=== PATIENT | male | born 1995 | race Caucasian/White ===

== ENCOUNTER 2017-06-25 21:15 | Emergency (ER) | payer MEDICAID ==
[~2017-06-25] VITALS: Ht 180.3 cm; Wt 77.0 kg
[2017-06-25] MEDS ORDERED: ONDANSETRON HCL 4MG/2ML VIAL IV STA (21:37)
[2017-06-25] MEDS ORDERED: SODIUM CHLORIDE 0.9% 1,000 ML IV ONE ×2 (21:37→23:00)
[2017-06-25 21:55] LABS: BASOPHILS % 0.3 % (0.0-2.0); EOSINOPHILS % 0.5 % (0.0-5.0); HEMATOCRIT. 40.3 % (42.0-52.0); HEMOGLOBIN. 13.5 g/dL (14.0-18.0); LYMPHOCYTES % 21.2 % (20.0-50.0); MEAN CORPUSCULAR HEMOGLOBIN 27.8 pg (28.0-32.0); MEAN CORPUSCULAR VOLUME 82.5 fL (80.0-94.0); MEAN PLATELET VOLUME 7.7 fl (7.4-10.4); PLATELET 227 x1000/uL (130-400); RED BLOOD CELL COUNT 4.88 mill/uL (4.7-6.1); RED CELL DISTRIBUTION WIDTH 13.7 % (11.6-14.6)
[2017-06-25 22:05] LABS: PROTHROMBIN TIME 10.9 sec (9.4-11.6)
[2017-06-25 22:07] LABS: CARBON DIOXIDE 32 mEq/L (21-32); CHLORIDE 105 mEq/L (98-107)
[2017-06-25] MEDS ORDERED: ONDANSETRON HCL 4MG/2ML VIAL IV ONE (23:00)
[2017-06-26 01:17] LABS: CLARITY URINE TURBID (CLEAR); COLOR URINE YELLOW (YELLOW); GLUCOSE URINE NEGATIVE (NEGATIVE); KETONES URINE NEGATIVE (NEGATIVE); LEUKOCYTE ESTERASE URINE NEGATIVE (NEGATIVE); NITRITE URINE NEGATIVE (NEGATIVE); OCCULT BLOOD URINE NEGATIVE (NEGATIVE); PROTEIN URINE NEGATIVE (NEGATIVE); SPECIFIC GRAVITY URINE 1.021 (1.005-1.030)
[2017-06-26 01:33] LABS: *AMPHETAMINES SCREEN URINE NEGATIVE (NEGATIVE); *BARBITURATES SCREEN URINE NEGATIVE (NEGATIVE); *BENZODIAZEPINES SCREEN URINE NEGATIVE (NEGATIVE); *COCAINE SCREEN URINE NEGATIVE (NEGATIVE); CANNABINOID URINE SCREEN NEGATIVE (NEGATIVE); METHADONE URINE SCREEN NEGATIVE (NEGATIVE); OPIATES URINE SCREEN NEGATIVE (NEGATIVE); PHENCYCLIDINE URINE SCREEN NEGATIVE (NEGATIVE)
[2017-06-26 02:00] VITALS: BP 101/51
== END 2017-06-26 02:20 | disposition home or self-care (01) ==
LOC: ER 21:36
DX: R11.0 Nausea (principal)
CPT/HCPCS: 36415; 80053; 80305; 81001; 83690; 85025; 85610; 96361; 96374; 96376; 99284; J2405; J7030; Z7610

== ENCOUNTER 2020-01-31 19:03 | Emergency (ER) | payer MEDICAID ==
[~2020-01-31] VITALS: Ht 180.3 cm; Wt 55.0 kg
[2020-01-31] MEDS ORDERED: ACETAMINOPHEN 500MG TABLET PO ONE (20:30)
[2020-01-31 22:32] VITALS: BP 128/78
== END 2020-01-31 22:34 | disposition home or self-care (01) ==
LOC: ER 19:03
DX: S83.203A Other tear of unspecified meniscus, current injury, right knee, initial encounter (principal); F20.9 Schizophrenia, unspecified; X50.1XXA Overexertion from prolonged static or awkward postures, initial encounter; Y93.89 Activity, other specified; Y92.018 Other place in single-family (private) house as the place of occurrence of the external cause
CPT/HCPCS: 73560; 99283; Z7610

== ENCOUNTER 2020-08-03 09:40 | Emergency (ER) | payer MEDICAID ==
[~2020-08-03] VITALS: Ht 180.3 cm; Wt 70.0 kg
[2020-08-03] MEDS ORDERED: IBUPROFEN 400MG TABLET PO ONE (10:00)
[2020-08-03 12:09] VITALS: BP 116/70
== END 2020-08-03 12:09 | disposition home or self-care (01) ==
LOC: ER 09:40
DX: S83.91XA Sprain of unspecified site of right knee, initial encounter (principal); Z00.01 Encounter for general adult medical examination with abnormal findings; Z98.890 Other specified postprocedural states; Z86.59 Personal history of other mental and behavioral disorders; X58.XXXA Exposure to other specified factors, initial encounter; Y93.89 Activity, other specified; Y92.89 Other specified places as the place of occurrence of the external cause; Y99.8 Other external cause status
CPT/HCPCS: 73560; 93971; 99284

== ENCOUNTER 2020-09-10 08:28 | Emergency (ER) | payer MEDICAID ==
[~2020-09-10] VITALS: Ht 180.3 cm; Wt 64.0 kg
[2020-09-10 09:02] VITALS: BP 110/70
== END 2020-09-10 09:03 | disposition home or self-care (01) ==
LOC: ER 08:28
DX: M25.561 Pain in right knee (principal); Z86.59 Personal history of other mental and behavioral disorders
CPT/HCPCS: 99282

== ENCOUNTER 2022-01-09 15:01 | Emergency (ER) | payer MEDICAID ==
[~2022-01-09] VITALS: Ht 182.9 cm; Wt 64.0 kg
[2022-01-09] MEDS ORDERED: KETOROLAC 15MG/ML VIAL IV ONE (15:30)
[2022-01-09] MEDS ORDERED: SODIUM CHLORIDE 0.9% 1,000 ML IV ONE (15:30)
[2022-01-09 16:00] LABS: BASOPHILS % 0.3 % (0.0-2.0); EOSINOPHILS % 0.2 % (0.0-5.0); HEMATOCRIT. 46.3 % (42.0-52.0); HEMOGLOBIN. 15.6 g/dL (14.0-18.0); LYMPHOCYTES % 9.4 % (20.0-50.0); MEAN CORPUSCULAR VOLUME 83.1 fL (80.0-94.0); MEAN PLATELET VOLUME 8.7 fl (7.4-10.4); MONOCYTES % 4.2 % (2.0-8.0); NEUTROPHILS % 85.9 % (40.0-76.0); PLATELET 256 x1000/uL (130-400); RED BLOOD CELL COUNT 5.57 mill/uL (4.7-6.1); RED CELL DISTRIBUTION WIDTH 12.2 % (11.6-14.6)
[2022-01-09 16:03] LABS: CHLORIDE 105 mEq/L (98-107)
[2022-01-09 16:11] LABS: ETHANOL BLOOD < 10 mg/dL
[2022-01-09] MEDS ORDERED: MAGNESIUM CITRATE 300ML SOLUTION PO ONE (17:00)
[2022-01-09] MEDS ORDERED: KETOROLAC 15MG/ML VIAL IV NR (20:00)
[2022-01-09 20:05] VITALS: BP 132/82
[2022-01-09] MEDS ORDERED: MAGN296S70 MT (20:10)
[2022-01-09] MEDS ORDERED: SENN-257 MT (20:10)
[2022-01-09] MEDS ORDERED: DOCU-138 MT (20:10)
== END 2022-01-09 20:24 | disposition home or self-care (01) ==
LOC: ER 15:01
DX: K59.00 Constipation, unspecified (principal); F20.9 Schizophrenia, unspecified; F31.9 Bipolar disorder, unspecified
CPT/HCPCS: 36415; 74176; 80053; 80320; 83690; 85025; 96374; 99284; J1885; J7030; G0480

== ENCOUNTER 2022-09-18 13:51 | Emergency (ER) | payer MEDICAID ==
[~2022-09-18] VITALS: Ht 182.9 cm; Wt 81.6 kg
[~2022-09-18 13:51] MED LIST: DOCU-138 MT; MAGN296S70 MT; SENN-257 MT
[2022-09-18] MEDS ORDERED: HYDROCODONE/ACETAMINOPHEN 5/325MG TABLET PO ONE (15:00)
[2022-09-18] MEDS ORDERED: IBUPROFEN 400MG TABLET PO ONE (15:00)
[2022-09-18 16:08] VITALS: BP 124/64
[2022-09-18] MEDS ORDERED: IBUP-2028 MT (17:44)
== END 2022-09-18 19:11 | disposition home or self-care (01) ==
LOC: ER 13:51
DX: M25.562 Pain in left knee (principal); F20.9 Schizophrenia, unspecified; W10.8XXA Fall (on) (from) other stairs and steps, initial encounter; Y93.89 Activity, other specified; Y92.018 Other place in single-family (private) house as the place of occurrence of the external cause
CPT/HCPCS: 72170; 72192; 73552; 73560; 73590; 99284; L1830; Z7610

== ENCOUNTER 2023-02-14 09:29 | Emergency (ER) | payer MEDICAID ==
[~2023-02-14] VITALS: Ht 180.3 cm; Wt 78.6 kg
[~2023-02-14 09:29] MED LIST changes: +IBUP-2028 MT
[2023-02-14 09:35] VITALS: O2SAT 100
[2023-02-14 10:12] LABS: CLARITY URINE CLEAR (CLEAR); COLOR URINE YELLOW (YELLOW); KETONES URINE NEGATIVE (NEGATIVE); LEUKOCYTE ESTERASE URINE NEGATIVE (NEGATIVE); NITRITE URINE NEGATIVE (NEGATIVE); OCCULT BLOOD URINE NEGATIVE (NEGATIVE); PH URINE 6.5 (4.5-8.0); PROTEIN URINE NEGATIVE (NEGATIVE); SPECIFIC GRAVITY URINE 1.019 (1.005-1.030); UROBILINOGEN URINE 0.2 E.U./dL (0.2-1.0)
[2023-02-14 10:31] VITALS: BP 132/94; PULSE 87; RESP 16; TEMP 97.9
[2023-02-16 08:08] LABS: NEISSERIA GONORRHOEAE NAA Negative (Negative)
== END 2023-02-14 10:32 | disposition home or self-care (01) ==
LOC: ER 09:42
DX: Z11.3 Encounter for screening for infections with a predominantly sexual mode of transmission (principal)
CPT/HCPCS: 81003; 86592; 87491; 87591; 99283

== ENCOUNTER 2023-02-25 20:19 | Emergency (ER) | payer MEDICAID ==
[~2023-02-25] VITALS: Ht 180.3 cm; Wt 75.9 kg
[2023-02-25 21:12] VITALS: O2SAT 97
[2023-02-25] MEDS ORDERED: IBUPROFEN 600MG TABLET PO ONE (23:15)
[2023-02-25 23:51] VITALS: BP 109/67
[2023-02-26 01:03] VITALS: PULSE 96; TEMP 97.9
== END 2023-02-26 01:03 | disposition home or self-care (01) ==
LOC: ER 20:19
DX: S20.211A Contusion of right front wall of thorax, initial encounter (principal); S49.91XA Unspecified injury of right shoulder and upper arm, initial encounter; G89.11 Acute pain due to trauma; W14.XXXA Fall from tree, initial encounter; Y93.89 Activity, other specified; Y92.89 Other specified places as the place of occurrence of the external cause; Y99.8 Other external cause status
CPT/HCPCS: 71045; 73080; 73090; 99284

== ENCOUNTER 2023-05-05 13:36 | Emergency (ER) | payer MEDICAID ==
[~2023-05-05] VITALS: Ht 182.9 cm; Wt 72.0 kg
[~2023-05-05 13:36] MED LIST changes: +CEPH500T MT; +NAPR-681 PO; +SULF1TAB48 MT
[2023-05-05 13:43] VITALS: BP 112/69; PULSE 73; RESP 20; TEMP 98.6; O2SAT 99
[2023-05-05] MEDS ORDERED: CEFTRIAXONE SODIUM 500 MG/VIAL IM ONE (14:30)
[2023-05-05] MEDS ORDERED: DOXYCYCLINE HYCLATE 100MG CAPSULE PO ONE (14:30)
[2023-05-06] MEDS ORDERED: CEPH500C2 MT (16:15)
[2023-05-06] MEDS ORDERED: IBUP-2029 MT (16:15)
== END 2023-05-05 19:50 | disposition left against medical advice (07) ==
LOC: ER 13:40
DX: A64 Unspecified sexually transmitted disease (principal); Z53.21 Procedure and treatment not carried out due to patient leaving prior to being seen by health care provider
CPT/HCPCS: 99281

== ENCOUNTER 2023-05-06 13:41 | Emergency (ER) | payer MEDICAID ==
[~2023-05-06] VITALS: Ht 180.3 cm; Wt 78.0 kg
[2023-05-06 13:45] VITALS: BP 104/45; PULSE 83; RESP 16; TEMP 98.7; O2SAT 98
[2023-05-06] MEDS ORDERED: IBUP-2029 MT (16:15)
[2023-05-06] MEDS ORDERED: CEPH500C2 MT (16:15)
== END 2023-05-06 16:40 | disposition home or self-care (01) ==
LOC: ER 13:41
DX: L03.311 Cellulitis of abdominal wall (principal); F20.9 Schizophrenia, unspecified; Z98.890 Other specified postprocedural states
CPT/HCPCS: 99283

== ENCOUNTER 2024-10-18 09:27 | Emergency (ER) | payer MEDICAID ==
[~2024-10-18] VITALS: Ht 180.3 cm; Wt 86.1 kg
[~2024-10-18 09:27] MED LIST changes: +CEPH500C2 MT; +IBUP-2029 MT; -SENN-257 MT; +SENN-362 MT
[2024-10-18 09:31] VITALS: O2SAT 97
[2024-10-18 09:34] VITALS: BP 122/68; PULSE 80; RESP 18; TEMP 36.9; O2SAT 98
[2024-10-18] MEDS: IBUPROFEN 800MG TABLET PO ONE (09:51)
[2024-10-18] MEDS ORDERED: IBUP-2030 MT (10:27)
== END 2024-10-18 10:39 ==
LOC: ER 09:27
DX: S89.92XA Unspecified injury of left lower leg, initial encounter (principal); M25.562 Pain in left knee; Z79.899 Other long term (current) drug therapy; W18.39XA Other fall on same level, initial encounter; Y93.89 Activity, other specified; Y92.89 Other specified places as the place of occurrence of the external cause
CPT/HCPCS: 73562; 99283